=== PATIENT | female | born 1980 | race American Indian/Alaskan Native ===

== ENCOUNTER 2025-01-08 12:51 | Emergency (ER) | payer SELFPAY ==
[2025-01-08] MEDS ORDERED: Sodium Chloride 0.9% 10 ML Syringe FLUSH PRN (12:53)
[2025-01-08 13:11] LABS: BASOPHILS PERCENT AUTO 0.5 % (0.0-1.0); EOSINOPHILS PERCENT AUTO 0.7 % (1.0-3.0); LYMPHOCYTES PERCENT AUTO 15.7 % (20.5-50.1); MONOCYTES PERCENT AUTO 7.2 % (2-8); NEUTROPHILS PERCENT AUTO 75.9 % (42.2-75.2); PLATELET COUNT,PLT 437 10^3/uL (150-450); RED BLOOD CELL COUNT 3.92 10^6/uL (4.2-5.4); WHITE BLOOD CELL COUNT,WBC 10.4 10^3/uL (5.0-10.0)
[2025-01-08 13:15] LABS: AMPHETAMINES,URINE NEGATIVE (NEGATIVE); BARBITURATES,URINE NEGATIVE (NEGATIVE); MDMA (ECSTASY), URINE NEGATIVE (NEGATIVE); METHAMPHETAMINES,URINE NEGATIVE (NEGATIVE); OPIATES,URINE NEGATIVE (NEGATIVE); OXYCODONE,URINE NEGATIVE (NEGATIVE); PHENCYCLIDINE,URINE NEGATIVE (NEGATIVE); TCA,URINE NEGATIVE (NEGATIVE)
[2025-01-08 13:31] LABS: A/G RATIO 1.0; ALANINE AMINOTRANSFERASE,ALT 20 U/L (14-59); ASPARTATE AMNIOTRANSFERASE,AST 12 U/L (15-37); BILIRUBIN TOTAL 0.3 mg/dL (0.2-1.0); BLOOD UREA NITROGEN,BUN 10 mg/dL (7-18); CARBON DIOXIDE,CO2 24 mmol/L (21-32); CHLORIDE,CL 106 mmol/L (98-107); CREATININE 0.58 mg/dL (0.55-1.02); GLUCOSE RANDOM 99 mg/dL (70-99); POTASSIUM,K 3.9 mmol/L (3.5-5.1); PROTEIN TOTAL,TP 7.3 g/dL (6.4-8.2); SODIUM,NA 138 mmol/L (136-145)
[2025-01-08 13:35] LABS: ESTIMATED GFR 115 mL/min (>=60); ETHANOL BLOOD MEDICAL < 3 mg/dL (0); INR 0.9 (0.9-1.2)
[2025-01-08 17:22] LABS: BLOOD UREA NITROGEN,BUN 9.0 mg/dL (7-18); CARBON DIOXIDE,CO2 26.0 mmol/L (21-32); CHLORIDE,CL 106.0 mmol/L (98-107); CREATININE 0.57 mg/dL (0.55-1.02); EST CRCL DRUG DOSING (CG) 109.89 mL/min; ESTIMATED GFR 116.0 mL/min (>=60); GLUCOSE RANDOM 87.0 mg/dL (70-99); POTASSIUM,K 3.8 mmol/L (3.5-5.1); SODIUM,NA 139.0 mmol/L (136-145)
== END 2025-01-08 19:47 | disposition home or self-care (01) ==
LOC: DL.ED 12:51
DX: T39.312A Poisoning by propionic acid derivatives, intentional self-harm, initial encounter (principal); F32.A Depression, unspecified
CPT/HCPCS: 36415; 80048; 80053; 80143; 80179; 80305-QW; 80307; 81025; 83605; 83735; 85025; 85610; 93005; 93010; 99284; 99285